=== PATIENT | female | born 1970 | race Caucasian/White ===

== ENCOUNTER → 2020-06-28 10:09 | Outpatient (CLI) | payer OTHER ==
[2020-06-28 10:50] LABS: BASOPHILS 0.3 % (0-2); EOSINOPHILS 3.2 % (0-7); HEMATOCRIT 44.2 % (36.0-48.0); HEMOGLOBIN 14.7 g/dL (12-16); IMMATURE GRANULOCYTES 0.3 % (0-5); LYMPHOCYTE ABS# 3.16 10x3/uL (1.18-3.74); LYMPHOCYTES 43.8 % (15-50); MCH 30.2 pg (26.0-34.0); MCHC 33.3 g/dL (31.0-37.0); MCV 90.8 fL (80.0-100.0); MEAN PLATELET VOLUME 10.3 fL (7.4-10.4); MONOCYTES 6.4 % (2-11); NEUTROPHIL ABS# 3.33 10x3/uL (1.56-6.13); PLATELET COUNT 212 10x3/uL (130-400); RBC 4.87 10x6/uL (4.00-5.40); RDW 12.8 % (11.5-14.5); WBC 7.2 10x3/uL (4.8-10.8)
[2020-06-28 11:03] LABS: ANION GAP 14.4 mmol/L (8-16); CALCIUM 8.9 mg/dL (8.5-10.1); CARBON DIOXIDE 21.6 mmol/L (21.0-32.0); CREATININE - SERUM 0.9 mg/dL (0.6-1.3)
== END | disposition home or self-care (01) ==
LOC: D.LAB 10:09
PROVIDERS: ATTEND Psychiatry & Neurology Neurology
DX: G43.909 Migraine, unspecified, not intractable, without status migrainosus (principal)